=== PATIENT | male | born 1975 | race Caucasian/White ===

== ENCOUNTER 2017-08-05 09:40 | Emergency (ER) | payer OTHER ==
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
[2017-08-05] MEDS ORDERED: Ketorolac 60 MG/2 ML SDV IM ONE (10:33)
--- NOTE | 2017-08-05 11:19 | CR ---
EXAMINATION: Right shoulder and right elbow HISTORY: Pain COMPARISON: None TECHNIQUE: 3 views of the right shoulder and 3 views of the right elbow FINDINGS: There is a vague world sclerotic area within the proximal humeral metaphysis. Given the karson earances likely represents an old infarct versus and chondroma. No endosteal scalloping. There is no acute osseous abnormality, dislocation, or fracture.. Joint spaces and bone mineralizatio n are otherwise normal. No elbow joint effusion. IMPRESSION: 1. No acute osseous abnormality identified.
[2017-08-05 12:03] VITALS: BP 142/92
== END 2017-08-05 12:04 | disposition home or self-care (01) ==
LOC: MW.ED 09:40
DX: M25.511 Pain in right shoulder (principal); M25.521 Pain in right elbow
CPT/HCPCS: 73030; 73080; 96372; 99283; A4566; J1885; J2360